=== PATIENT | male | born 1980 ===

== ENCOUNTER 2022-04-08 08:39 | Emergency (ER) | payer SELFPAY ==
[2022-04-08 09:17] VITALS: BP 138/86
--- NOTE | 2022-04-08 09:22 | Event Note ---
ED Screening Note Date of service: 04/08/22 Time: 09:17 ED Screening Note: This initial assessment/diagnostic orders/clinical plan/treatment(s) is/are subject to change based on patients health status, clinical progression and re- assessment by fellow clinical providers in the ED. Further treatment and workup at subsequent clinical providers discretion. Patient/guardian urged not to elope from the ED as their condition may be serious if not clinically assessed and managed. Patient with ASA/Ibuprofen allergy took Goody powder at 6am not realizing that it had ASA in it. Started with SOB at about 7:30. Took 20mg prednisone at about 8am. Lungs clear. Resp rate 18, SaO2 98%. Hx asthma - on albuterol. No intubations/hospitalizations but has needed epi in past. To main ED. Initial orders include:
--- NOTE | 2022-04-08 11:03 | Emergency Department Report ---
ED General Adult HPI - General Chief complaint: Allergic Reaction Stated complaint: ALLERGIC REACTION Time Seen by Provider: 04/08/22 10:05 Source: patient, RN notes reviewed Mode of arrival: Ambulatory Limitations: No Limitations - History of Present Illness Initial comments: This is a pleasant and cooperative 41-year-old gentleman, who presents to the department today with family, with a complaint of possibly having had an allergic reaction. He is allergic to aspirin and NSAIDs, and may have accidentally taken Goody powders prior to arrival. He reported some tightness in his chest, without significant shortness of breath. His who is a nurse gave him prednisone. He has no complaints at this time. He denies physical pain at this time. He is primarily presenting for the purposes of reassurance. -: Sudden Severity scale (0 -10): 0 Consistency: now resolved Improves with: none Worsens with: none Associated Symptoms: denies other symptoms - Related Data Previous Rx's Medication Instructions Recorded Last Taken Type Albuterol Sulfate [Albuterol 0.63% 0.63 mg IH Q4HR PRN #2 ml 04/08/22 Unknown Rx NEBS] Albuterol Sulfate [Proair 90 mcg IH Q4HR PRN #2 [email or web address] 04/08/22 Unknown Rx Respiclick] EPINEPHrine [Epipen 2-Dane] 0.3 mg IM DAILY PRN #2 ml 04/08/22 Unknown Rx Famotidine [Pepcid] 20 mg PO BID PRN #30 tablet 04/08/22 Unknown Rx diphenhydrAMINE [Benadryl] 50 mg PO Q8HR PRN #20 capsule 04/08/22 Unknown Rx Allergies Allergy/AdvReac Type Severity Reaction Status Date / Time acetaminophen [From Tylenol] Allergy Shortness Verified 04/08/22 09:18 of Breath ibuprofen Allergy Shortness Verified 04/08/22 09:18 of Breath aspirin AdvReac Shortness Verified 04/08/22 09:18 of Breath ED Review of Systems ROS: Stated complaint: ALLERGIC REACTION Other details as noted in HPI Comment: All other systems reviewed and negative Cardiovascular: as per HPI ED Past Medical Hx - Medications Home Medications: Home Medications Medication Instructions Recorded Confirmed Last Taken Type Albuterol Sulfate [Albuterol 0.63% 0.63 mg IH Q4HR PRN #2 ml 04/08/22 Unknown Rx NEBS] Albuterol Sulfate [Proair 90 mcg IH Q4HR PRN #2 [email or web address] 04/08/22 Unknown Rx Respiclick] EPINEPHrine [Epipen 2-Dane] 0.3 mg IM DAILY PRN #2 ml 04/08/22 Unknown Rx Famotidine [Pepcid] 20 mg PO BID PRN #30 tablet 04/08/22 Unknown Rx diphenhydrAMINE [Benadryl] 50 mg PO Q8HR PRN #20 capsule 04/08/22 Unknown Rx ED Physical Exam - General Limitations: No Limitations General appearance: alert, in no apparent distress - Head Head exam: Present: atraumatic, normocephalic - Eye Eye exam: Present: normal appearance, EOMI. Absent: nystagmus - ENT ENT exam: Present: normal exam, normal orophraynx, mucous membranes moist, normal external ear exam - Neck Neck exam: Present: normal inspection, full ROM. Absent: tenderness, meningismus - Respiratory Respiratory exam: Present: normal lung sounds bilaterally. Absent: respiratory distress, wheezes, rales, rhonchi, stridor, decreased breath sounds - Cardiovascular Cardiovascular Exam: Present: regular rate, normal rhythm, normal heart sounds. Absent: bradycardia, tachycardia, irregular rhythm, systolic murmur, diastolic murmur, rubs, gallop - GI/Abdominal GI/Abdominal exam: Present: soft. Absent: distended, tenderness, guarding, rebound, rigid, pulsatile mass - Rectal Rectal exam: Present: deferred - Extremities Exam Extremities exam: Present: normal inspection, full ROM, normal capillary refill, other (2+ pulses noted in the bilateral upper and lower extremities. There is no palpable cord. negative Homans sign. Muscular compartments are soft. The pelvis is stable.). Absent: pedal edema, calf tenderness - Back Exam Back exam: Present: normal inspection. Absent: tenderness, CVA tenderness (R), CVA tenderness (L), paraspinal tenderness, vertebral tenderness - Neurological Exam Neurological exam: Present: alert, oriented X3, other (There is no facial droop. The tongue is midline.. 5-5 strength in 4 extremities.). Absent: motor sensory deficit - Psychiatric Psychiatric exam: Present: normal affect, normal mood - Skin Skin exam: Present: warm, dry, intact, normal color. Absent: rash - Other Other exam information: Patient is awake and alert, speaking in full sentences. There is no stridor. There is no dysphonia. The tongue is midline. The uvula is Midline. There is no intraoral swelling noted ED Course Vital Signs 04/08/22 09:12 Temperature 99.0 F Pulse Rate 87 Respiratory 16 Rate Blood Pressure 138/86 [Right] O2 Sat by Pulse 98 Oximetry ED Medical Decision Making - Lab Data Vital Signs 04/08/22 09:12 Temperature 99.0 F Pulse Rate 87 Respiratory 16 Rate Blood Pressure 138/86 [Right] O2 Sat by Pulse 98 Oximetry - EKG Data -: EKG Interpreted by Nc EKG shows normal: sinus rhythm Rate: normal - EKG Data 04/08/22 11:02 The EKG is interpreted at 10: 50 Sinus rhythm, with a rate of 63 bpm. Normal axis, normal intervals, high left ventricular voltage, early repolarization. This is not a STEMI - Medical Decision Making Differential diagnosis, include but not limited to: Encounter for medical screening examination, resolved allergic reaction Assessment and plan: 41-year-old gentleman, who is afebrile, with reassuring vital signs, in no acute respiratory distress, who is phonating in complete sentences, saturating 99% on room air, and has no acute complaints. When I walked into the room, he is watching TV, and speaking to his at the bedside, and in no acute distress His physical exam is benign, noncontributory, and unremarkable. He is observed in this department for hours without clinical decompensation. He does not appear to have an emergent medical condition present at this time. He is requesting refill on his albuterol. Since he is not wheezing, I do not see an indication for steroids. He is advised to avoid acetaminophen, ibuprofen, aspirin. He can be discharged with as needed epinephrine pens, as needed albuterol, as needed Pepcid, and Benadryl. Critical care attestation.: If time is entered above; I have spent that time in minutes in the direct care of this critically ill patient, excluding procedure time. ED Disposition Clinical Impression: History of allergy, Medication refill Disposition: HOME / SELF CARE / HOMELESS Is pt being admited?: No Does the pt Need Aspirin: No Condition: Good Additional Instructions: Please avoid consumption of ibuprofen, aspirin, Naprosyn, NSAIDs, Tylenol, and Goody powders. Take the medications as needed and directed. Follow-up with an outpatient primary care doctor within the next 2 weeks. Please return to the emergency room right away with new pain, worsened pain, migration of pain, projectile vomiting, change in mental status, confusion, inability tolerate liquid feeds, new, worsened or different symptoms not present on the initial emergency room evaluation Referrals: [facility] [Provider Group] - 3-5 Days Forms: Work/School Release Form(ED)
--- NOTE | 2022-04-08 12:07 | Electrocardiograph Report ---
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
== END 2022-04-08 13:13 | disposition home or self-care (01) ==
LOC: ED 08:39
DX: T78.40XA Allergy, unspecified, initial encounter (principal); R07.89 Other chest pain; Z76.0 Encounter for issue of repeat prescription; Z88.6 Allergy status to analgesic agent; Z88.8 Allergy status to other drugs, medicaments and biological substances; Z79.899 Other long term (current) drug therapy
CPT/HCPCS: 93005; 99282